=== PATIENT | female | born 1955 | race Caucasian/White ===

== ENCOUNTER 2019-07-03 15:17 | Emergency (ER) | payer BC ==
[~2019-07-03] VITALS: Ht 165.1 cm; Wt 49.9 kg
[2019-07-03 15:17] VITALS: BP 135/67
[~2019-07-03 15:17] MED LIST: ALEVE220 MG PO; ASPI-COR81 M1 PO; ATOXIMETIN-B1 CAP PO; BACTRIM DS 8001 TA1 PO; CIPROFLOXACIN500 MG PO; EPIPEN1 MG/ML SC; LOPRESSOR25 MG PO; PROBIOTIC FORMU1 CA1 PO; PYRIDIUM100 MG PO; TYLENOL W/CODEI1 TA2 PO; XANAX0.5 MG PO; ZOFRAN ODT4 MG SL
[2019-07-03 16:14] LABS: BASO # 0.1 10*3/uL (0.0-0.1); BASO % 1.1 % (0.0-1.0); EOS # 0.3 10*3/uL (0.0-0.4); EOS % 5.7 % (1.0-4.0); HEMATOCRIT 42.6 % (37.0-47.0); HEMOGLOBIN 13.7 g/dl (12.0-16.0); LYMPH # 1.8 10*3/uL (1.3-4.4); LYMPH % 34.4 % (27.0-41.0); MEAN CORPUSCULAR HGB 29.6 pg (27.0-31.0); MEAN CORPUSCULAR HGB CONC 32.2 g/dl (33.0-37.0); MEAN PLATELET VOLUME 9.6 fl (9.6-12.3); MONO # 0.6 10*3/uL (0.1-1.0); MONO % 10.5 % (3.0-9.0); NEUT # 2.5 10*3/uL (2.3-7.9); NEUT % 48.1 % (47.0-73.0); PLATELET COUNT AUTOMATED 199 10*3/uL (130-400); RED BLOOD COUNT 4.63 10*6/uL (4.10-5.10); RED CELL DISTRI WIDTH 12.8 % (0-14.5); WHITE BLOOD COUNT 5.3 10*3/uL (4.8-10.8)
[2019-07-03 16:30] LABS: ALBUMIN 4.1 gm/dl (3.1-4.5); ALKALINE PHOSPHATASE 56 U/L (45-117); BUN 9 mg/dl (7-24); CHLORIDE 109 mmol/L (98-107); CREATININE 1.06 mg/dL (0.55-1.02); POTASSIUM 4.2 mmol/L (3.5-5.1); SGOT/AST 20 IU/L (3-35); SGPT/ALT 22 U/L (12-78); SODIUM 142 mmol/L (136-145); TOTAL PROTEIN 7.8 gm/dL (6.4-8.2)
== END 2019-07-03 18:30 | disposition home or self-care (01) ==
LOC: ED 15:17
PROVIDERS: Physician Assistant
DX: G43.909 Migraine, unspecified, not intractable, without status migrainosus (principal); I10 Essential (primary) hypertension; Z91.030 Bee allergy status; Z88.8 Allergy status to other drugs, medicaments and biological substances; Z88.1 Allergy status to other antibiotic agents; Z79.2 Long term (current) use of antibiotics; Z79.82 Long term (current) use of aspirin; Z79.899 Other long term (current) drug therapy